=== PATIENT | female | born 1955 | race American Indian/Alaskan Native ===

== ENCOUNTER 2017-02-19 09:32 | Outpatient (CLI) | payer MEDICARE ==
--- NOTE | 2017-02-19 13:50 | Magnetic Resonance Report ---
MRI scan of lumbar spine: History: Autonomic neuropathy. Technique: Multiplanar, multisequence images were obtained without contrast injection. Findings: Conus medullaris terminates at L1 with normal signal intensity. Normal lumbar lordosis. Normal. Paravertebral soft tissue. Normal height and signal intensity of vertebral bodies. Decrease in signal intensity of L4-L5 and L5-S1 disc. L1-L2. Normal. L2-L3. Normal. L3-L4. Degenerative facet joints. No neuroforaminal narrowing or central canal spinal stenosis. L4-L5. Severe bilateral neural foramina narrowing with mild central canal spinal stenosis secondary to degenerative diffuse disc bulge and degenerative facet joints. Suspected mild ligamenta flava hypertrophy. L5-S1. Mild bilateral neural foramina narrowing secondary to diffuse disc bulge and moderate degenerative facet joints. No central canal spinal stenosis. No focal protrusion, extrusion or sequestration of disc. Impression: Bilateral neuroforaminal narrowing at L4-L5 and L5-S1. Central canal spinal stenosis L4-L5. Degenerative facet joints as detailed above.
== END 2017-02-19 09:33 | disposition home or self-care (01) ==
LOC: MRI 09:32
PROVIDERS: ATTEND Neurological Surgery
DX: M48.06 Spinal stenosis, lumbar region (principal); G99.0 Autonomic neuropathy in diseases classified elsewhere
CPT/HCPCS: 72148

== ENCOUNTER 2019-09-14 12:15 | Emergency (ER) | payer SELFPAY ==
[2019-09-14 12:30] VITALS: BP 173/63
--- NOTE | 2019-09-14 12:32 | Event Note ---
ED Screening Note Date of service: 09/14/19 Time: 12:29 ED Screening Note: This is a 64 y.o. F. that presents to the ER with epigastric pain and chest pain for 1 week. PMH GERD, DM, neuropathy This initial assessment/diagnostic orders/clinical plan/treatment(s) is/are subject to change based on patients health status, clinical progression and re- assessment by fellow clinical providers in the ED. Further treatment and workup at subsequent clinical providers discretion. Patient/guardian urged not to elope from the ED as their condition may be serious if not clinically assessed and managed. Initial orders include: Labs, EKG, & CXR
[2019-09-14 12:58] LABS: Bacteria,Urine 1+ /HPF (Negative); Bilirubin,Urine NEG (Negative); Blood,Urine NEG (Negative); Color,Urine Yellow (Yellow); Mucus,Urine FEW /HPF; Protein,Urine <15 mg/dL mg/dL (Negative)
--- NOTE | 2019-09-14 13:39 | XRay Report ---
CHEST 1 VIEW INDICATION / CLINICAL INFORMATION: chest pain. Patient also complaining of upper abdominal pain COMPARISON: None available. FINDINGS: SUPPORT DEVICES: None. HEART / MEDIASTINUM: No significant abnormality. LUNGS / PLEURA: No significant pulmonary or pleural abnormality. No pneumothorax. ADDITIONAL FINDINGS: No significant additional findings. IMPRESSION: 1. No acute findings. Signer Name: Marialuisa Winston MD Signed: 09/14/2019 1:35 PM Workstation Name: [id number]
[2019-09-14 14:05] LABS: Basophils # (Auto) 0.1 K/mm3 (0.0-0.1); Basophils % (Auto) 0.9 % (0.0-1.8); Eosinophils # (Auto) 0.2 K/mm3 (0.0-0.4); Hematocrit 40.9 % (30.3-42.9); Hemoglobin 13.8 gm/dl (10.1-14.3); Lymphocytes # (Auto) 3.5 K/mm3 (1.2-5.4); Lymphocytes % (Auto) 22.6 % (13.4-35.0); Mean Corpuscular HGB Conc 34 % (30-34); Mean Corpuscular Volume 88 fl (79-97); Monocytes # (Auto) 0.7 K/mm3 (0.0-0.8); Monocytes % (Auto) 4.8 % (0.0-7.3); Platelet Count 309 K/mm3 (140-440); Red Blood Count 4.65 M/mm3 (3.65-5.03); Red Cell Distribution Width 12.5 % (13.2-15.2)
[2019-09-14 14:30] LABS: Alanine Aminotransferase 16 units/L (7-56); Albumin 3.8 g/dL (3.9-5); BUN/Creatinine Ratio 16; Blood Urea Nitrogen 11 mg/dL (7-17); Calcium 9.3 mg/dL (8.4-10.2); Hemolysis Index 1
== END 2019-09-14 15:42 | disposition left against medical advice (07) ==
LOC: ED 12:15
DX: R10.10 Upper abdominal pain, unspecified (principal); Z53.21 Procedure and treatment not carried out due to patient leaving prior to being seen by health care provider
CPT/HCPCS: 36415; 71045; 80053; 81001; 83690; 84484; 85025; 87086; 93005; 93010